=== PATIENT | male | born 1975 | race African-American/Black ===

== ENCOUNTER 2019-02-22 01:51 | Inpatient (IN) | payer MEDICAID, OTHER ==
[~2019-02-22] VITALS: Ht 167.6 cm; Wt 69.4 kg
[2019-02-22] MEDS ORDERED: MORPHINE SULFATE 4 MG/ML CPJ (NOT FOR IM USE) IV ONE (02:45)
[2019-02-22 03:09] LABS: BASOPHILS % 1.3 % (0.0-2.0); CHLORIDE 109 mEq/L (98-107); EOSINOPHILS % 1.4 % (0.0-5.0); HEMOGLOBIN. 12.6 g/dL (14.0-18.0); LYMPHOCYTES % 43.2 % (20.0-50.0); MEAN CORPUSCULAR HEMOGLOBIN 27.3 pg (28.0-32.0); MEAN CORPUSCULAR VOLUME 82.1 fL (80.0-94.0); MEAN PLATELET VOLUME 9.2 fl (7.4-10.4); MONOCYTES % 3.6 % (2.0-8.0); NEUTROPHILS % 50.5 % (40.0-76.0); PLATELET 188 x1000/uL (130-400); RED BLOOD CELL COUNT 4.62 mill/uL (4.7-6.1); RED CELL DISTRIBUTION WIDTH 15.9 % (11.6-14.6)
[2019-02-22] MEDS ORDERED: IOHEXOL-350 100 ML BOTTLE ONE (05:58)
[2019-02-22 08:30] VITALS: BP 184/128
[2019-02-22 09:02] VITALS: BP 183/129
[2019-02-22] MEDS ORDERED: HYDRALAZINE 20MG/ML VIAL IV PRN (09:45)
[2019-02-22] MEDS ORDERED: IPRATROPIUM/ALBUTEROL 0.5-3(2.5)MG/3ML NEB HHN PRN (09:45)
[2019-02-22] MEDS ORDERED: CLONIDINE 0.1MG TABLET PO PRN (10:45)
[2019-02-22] MEDS ORDERED: IPRATROPIUM/ALBUTEROL 0.5-3(2.5)MG/3ML NEB INH PRN (10:45)
[2019-02-22] MEDS ORDERED: ACETAMINOPHEN 325MG TABLET PO PRN (10:45)
[2019-02-22] MEDS ORDERED: ONDANSETRON HCL 4MG/2ML INJ IV PRN (10:45)
[2019-02-22] MEDS ORDERED: GUAIFENESIN 200MG/10ML SUGAR FREE UDC PO PRN (10:45)
[2019-02-22] MEDS ORDERED: DIPHENHYDRAMINE 50MG/ML VIAL IV PRN (10:45)
[2019-02-22 11:08] VITALS: BP 121/82
[2019-02-22] MEDS ORDERED: FUROSEMIDE 40MG/4ML VIAL IVP SCH (11:15)
[2019-02-22] MEDS ORDERED: PNEUMOCOCCAL 23-VAL P-SAC VAC 0.5 ML IM ONE (11:30)
[2019-02-22 12:00] VITALS: BP 132/79
[2019-02-22] MEDS ORDERED: IPRATROPIUM/ALBUTEROL 0.5-3(2.5)MG/3ML NEB HHN SCH (12:00)
[2019-02-22] MEDS: AMLODIPINE 5MG TABLET PO SCH ×2 (12:24→20:55)
[2019-02-22 14:43] LABS: CLARITY URINE CLEAR (CLEAR); COLOR URINE YELLOW (YELLOW); KETONES URINE NEGATIVE (NEGATIVE); LEUKOCYTE ESTERASE URINE NEGATIVE (NEGATIVE); NITRITE URINE NEGATIVE (NEGATIVE); OCCULT BLOOD URINE NEGATIVE (NEGATIVE); PH URINE 7.5 (4.5-8.0); PROTEIN URINE NEGATIVE (NEGATIVE); SPECIFIC GRAVITY URINE 1.007 (1.005-1.030); UROBILINOGEN URINE 0.2 E.U./dL (0.2-1.0)
[2019-02-22] MEDS ORDERED: CLONIDINE 0.2MG TABLET PO PRN (15:07)
[2019-02-22 15:08] LABS: *BARBITURATES SCREEN URINE NEGATIVE (NEGATIVE)
[2019-02-22 15:09] LABS: *AMPHETAMINES SCREEN URINE NEGATIVE (NEGATIVE); *BENZODIAZEPINES SCREEN URINE NEGATIVE (NEGATIVE); *COCAINE SCREEN URINE NEGATIVE (NEGATIVE); METHADONE URINE SCREEN NEGATIVE (NEGATIVE); OPIATES URINE SCREEN NEGATIVE (NEGATIVE); PHENCYCLIDINE URINE SCREEN NEGATIVE (NEGATIVE)
[2019-02-22 15:10] LABS: CANNABINOID URINE SCREEN NEGATIVE (NEGATIVE)
[2019-02-22] MEDS: IPRATROPIUM/ALBUTEROL 0.5-3(2.5)MG/3ML NEB HHN SCH ×2 (15:22→20:45)
[2019-02-22] MEDS: POTASSIUM CHLORIDE 20MEQ TABLET SR PO SCH (15:29)
[2019-02-22] MEDS: HYDRALAZINE HCL 100MG TABLET PO SCH ×2 (15:31→20:54)
[2019-02-22] MEDS: SODIUM CHLORIDE 0.9% INJ 3ML FLUSH IVF SCH ×2 (15:37→20:54)
[2019-02-22 16:00] VITALS: BP 134/82
[2019-02-22] MEDS: FUROSEMIDE 40MG/4ML VIAL IVP SCH (17:24)
[2019-02-22 20:00] VITALS: BP 98/53
[2019-02-22] MEDS: CARVEDILOL 3.125 MG TABLET PO SCH (20:55)
[2019-02-23] VITALS: BP 111/53
[2019-02-23 04:00] VITALS: BP 103/54
[2019-02-23] MEDS: HYDRALAZINE HCL 100MG TABLET PO SCH ×2 (06:37→14:00)
[2019-02-23] MEDS: SODIUM CHLORIDE 0.9% INJ 3ML FLUSH IVF SCH (06:37)
[2019-02-23] MEDS: FUROSEMIDE 40MG/4ML VIAL IVP SCH (06:37)
[2019-02-23 08:00] VITALS: BP 119/65
[2019-02-23] MEDS: IPRATROPIUM/ALBUTEROL 0.5-3(2.5)MG/3ML NEB HHN SCH ×2 (08:53→16:35)
[2019-02-23] MEDS: POTASSIUM CHLORIDE 20MEQ TABLET SR PO SCH (09:22)
[2019-02-23] MEDS: AMLODIPINE 5MG TABLET PO SCH (09:23)
[2019-02-23] MEDS: CARVEDILOL 3.125 MG TABLET PO SCH (09:23)
[2019-02-23 12:13] VITALS: BP 115/57
[2019-02-23 16:00] VITALS: BP 124/69
[2019-02-23 16:32] VITALS: BP 124/69
== END 2019-02-23 18:38 | disposition home or self-care (01) | DRG 194 ==
LOC: ER 01:51 → 7WST 04:25 → ENRESERV 07:10
PROVIDERS: ADMIT Internal Medicine; ATTEND Internal Medicine
DX: I11.0 Hypertensive heart disease with heart failure (principal); R04.2 Hemoptysis; I42.9 Cardiomyopathy, unspecified; F10.10 Alcohol abuse, uncomplicated; F16.90 Hallucinogen use, unspecified, uncomplicated; I50.43 Acute on chronic combined systolic (congestive) and diastolic (congestive) heart failure; I25.10 Atherosclerotic heart disease of native coronary artery without angina pectoris; Z79.899 Other long term (current) drug therapy; Z82.49 Family history of ischemic heart disease and other diseases of the circulatory system; Z87.891 Personal history of nicotine dependence
CPT/HCPCS: 36415; 71045; 71275; 80305; 83880; 84484; 90732; 93005; 93306; 93970; 94640; 96374; 99285; J0360; J1940; J2270; J7620; Q9967